=== PATIENT | male | born 1980 | race Caucasian/White ===

== ENCOUNTER 2020-11-01 17:32 | Emergency (ER) | payer OTHER ==
[~2020-11-01] VITALS: Ht 170.2 cm; Wt 108.0 kg
[2020-11-01 18:29] LABS: ABSOLUTE BASOPHILS 0.1 thou/uL (0.0-0.2); ABSOLUTE EOSINOPHILS 0.3 thou/uL (0.0-0.7); ABSOLUTE LYMPHOCYTES 2.6 thou/uL (0.8-5.3); ABSOLUTE MONOCYTES 0.7 thou/uL (0.0-1.2); ABSOLUTE NEUTROPHILS 4.9 thou/uL (1.6-8.1); HEMATOCRIT 41.8 % (42.0-52.0); HEMOGLOBIN 14.2 gm/dL (14.0-18.0); LYMPHOCYTES 30.2 %; MCH 28.7 pg (26.0-34.0); MCV 84.6 fL (80.0-100.0); MONOCYTES 8.6 %; MPV 8.8 fl. (7.2-11.1); NUCLEATED RBCS 0 /100WBC; PLATELET COUNT* 306 thou/uL (150-400); POLYS 57.2 %; RBC 4.95 mil/uL (4.50-6.00); RDW-CV 13.1 % (10.5-14.5); WBC 8.5 thou/uL (4.0-11.0)
[2020-11-01 18:39] LABS: POTASSIUM 3.8 mmol/L (3.5-5.1)
[2020-11-01 18:43] LABS: ALBUMIN 4.2 g/dL (3.4-5.0); TOTAL BILIRUBIN 0.5 mg/dL (<0.1-1.0); TOTAL PROTEIN 8.2 g/dL (6.4-8.2)
[2020-11-01] MEDS ORDERED: ACYCLOVIR 400400 MG PO (20:39)
[2020-11-01] MEDS ORDERED: PREDNISONE 10 M10 MG PO (20:39)
[2020-11-01] MEDS ORDERED: FLEXERIL PO (20:39)
[2020-11-01] MEDS ORDERED: IBUPROFEN 800800 M1 PO (20:39)
[2020-11-01 21:51] VITALS: BP 137/91
--- NOTE | 2020-11-02 15:26 | EKG ---
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1980 Requested By: Maria Luisa Marcano Order Number: [id number] MD: Yosef Shah Measurements Intervals [place] Rate: 83 P: 27 WA: 171 QRS: -2 QRSD: 102 T: -8 QT: 374 QTc: 440 Interpretive Statements Sinus rhythm Low voltage, precordial leads Borderline T abnormalities, diffuse leads No previous ECG available for comparison Electronically Signed On 11-02-2020 15:25:50 CDT by Yosef Shah [email or web address] <ELECTRONICALLY SIGNED> By: Yosef Shah MD, [facility] 11/02/20 1525 1807 180 Yosef Shah MD, [facility] /EPI
== END 2020-11-01 21:51 | disposition home or self-care (01) ==
LOC: M.ERS 17:32 → EDBD 17:32 → M.ERS 21:51
PROVIDERS: Nurse Practitioner Family
DX: G51.0 Bell's palsy (principal); M48.02 Spinal stenosis, cervical region; G43.909 Migraine, unspecified, not intractable, without status migrainosus